=== PATIENT | female | born 1995 | race Caucasian/White ===

== ENCOUNTER → 2018-04-23 16:20 | Outpatient (CLI) | payer SELFPAY | PROVIDERS: Visit Provider Obstetrics & Gynecology | DX: Z12.4 Encounter for screening for malignant neoplasm of cervix (principal) | CPT/HCPCS: 88175; G0145 ==

== ENCOUNTER → 2019-05-13 15:45 | Outpatient (CLI) | payer SELFPAY | PROVIDERS: Referring Provider Obstetrics & Gynecology; Visit Provider Obstetrics & Gynecology | DX: Z12.4 Encounter for screening for malignant neoplasm of cervix (principal) | CPT/HCPCS: 88175; G0145 ==

== ENCOUNTER → 2020-04-21 09:49 | Outpatient (CLI) | payer SELFPAY ==
[2020-04-24 03:07] LABS: Chlamydia By Nucleic Acid AMP Negative (Negative)
[2020-04-24 10:38] LABS: Gonococcus By Nucleic Acid AMP Negative (Negative)
== END ==
PROVIDERS: Visit Provider Obstetrics & Gynecology
DX: Z12.4 Encounter for screening for malignant neoplasm of cervix (principal); Z11.3 Encounter for screening for infections with a predominantly sexual mode of transmission
CPT/HCPCS: 36415; 87491; 87591; 88175; G0145

== ENCOUNTER → 2020-11-02 13:23 | Outpatient (CLI) | payer SELFPAY | PROVIDERS: Visit Provider Obstetrics & Gynecology | DX: Z36.85 Encounter for antenatal screening for Streptococcus B (principal) | CPT/HCPCS: 87081 ==

== ENCOUNTER → 2020-12-06 16:18 | Outpatient (CLI) | payer SELFPAY | PROVIDERS: Visit Provider Obstetrics & Gynecology | DX: Z36.85 Encounter for antenatal screening for Streptococcus B (principal) | CPT/HCPCS: 87081 ==

== ENCOUNTER 2020-12-07 06:14 | Inpatient (IN) | payer SELFPAY ==
[2020-12-07] VITALS (64 sets, daily range): BP systolic 100–144; BP diastolic 55–95; PULSE 59–93; RESP 18; TEMP 36.4–37.6; O2SAT 97–100; BMI 32.1
[2020-12-07] MEDS: Lactated Ringers 1,000 ML 50 ML IV (06:30)
[2020-12-07 06:46] LABS: Absolute Neutrophil Count 8.8 X10^3/uL (2.0-7.7); Basophil# 0.02 X10^3/uL; Basophil% 0.2 % (0-1); Eosinophil# 0.04 X10^3/uL; Eosinophils% 0.4 % (0-5); Hematocrit 38.2 % (37-47); Hemoglobin 12.4 g/dL (12.0-15.0); Mean Corp Hgb Conc 32.5 g/dL (32-36); Mean Corpuscular Hgb 29.6 pg (27.0-32.0); Mean Corpuscular Volume 91.2 fL (81-99); Mean Platelet Vol. 12.7 fl (6.2-12.0); Monocyte# 0.48 X10^3/uL; Monocyte% 4.4 % (0-10); NRBC Flagged by Analyzer 0 % (0-5); Neutrophil # 8.81 X10^3/uL (2.7-7.7); Neutrophil % 81.4 % (47-70); POSITIVE MORPHOLOGY YES; Platelet Count 151 K/mm3 (150-450); RBC Distribution Width CV 13.5 % (11.6-14.6); RBC Distribution Width SD 45.1 fl (35.1-43.9); Red Blood Count 4.19 M/mm3 (4.2-5.4); White Blood Count 10.8 K/mm3 (4.4-11.0)
[2020-12-07 06:48] LABS: Differential Indicated SCAN CRITERIA MET
[2020-12-07] MEDS: Lactated Ringers 500 ML 999 ML IV (07:00)
--- NOTE | 2020-12-07 07:30 | PCM.HPOB.BLA ---
History and Physical Date of Admission: 12/07/20 Complaint: Contractions History present illness: The 25-year-old G1, P0 at 41 weeks and 1 days SACHA: 11/30/2019 1 x 9-week ultrasound arrives with contractions. Denies headache, vision changes, nausea vomiting, chest pain, shortness of breath. Patient states good movement complicated by Rh- Obstetric history: G1: Current Past medical history: None Medications: vitamins Past surgical history: [place] teeth extraction Allergies: No known drug allergies Social history: Denies history of smoking, alcohol use, drug use Family history: Denies history DVT or PE Review of systems: Besides above pertinent positives a full review of systems was performed found to be negative Physical exam: Vital Signs Temp Pulse BP Pulse Ox 12/07/20 07:31 93 99 12/07/20 07:26 73 98 12/07/20 07:21 67 98 12/07/20 07:19 98.4 F 12/07/20 07:18 91 129/95 H 12/07/20 07:16 71 97 12/07/20 07:11 80 98 12/07/20 07:06 88 99 12/07/20 06:03 98.0 F 68 137/84 H 12/07/20 06:02 67 97 General: Normal-appearing no acute distress HEENT: Normocephalic atraumatic no cervical of adenopathy Cardiac/respiratory: Nonlabored breathing, no use of accessory muscles Abdomen: Soft, nontender, gravid Extremities: No peripheral edema normal peripheral pulses Psych: Normal affect normal demeanor nonpressured speech Mom's Microbiology 12/07/20 06:40 Mucosa - Nose SARS-CoV-2 Antigen (Rapid) - Final Mom's Labs & Results 12/07/20 12/07/20 06:30 06:30 WBC 10.8 RBC 4.19 L Hgb 12.4 Hct 38.2 MCV 91.2 MCH 29.6 MCHC 32.5 RDW Std Deviation 45.1 H RDW Coeff of Cristina 13.5 Plt Count 151 MPV 12.7 H Immature Gran % (Auto) 0.600 Neut % (Auto) 81.4 H Lymph % (Auto) 13.0 L Ogle % (Auto) 4.4 Eos % (Auto) 0.4 Baso % (Auto) 0.2 Absolute Neuts (auto) 8.8 H Absolute Lymphs (auto) 1.40 Nucleated RBC % 0 Blood Type O NEGATIVE Antibody Screen NEGATIVE Labs Blood Type: O RH: POSITIVE RPR/VDRL/Syphilis Nonreactive Rubella status Immune HbSAg Negative Date Done: 04/27/20 Chlamydia Negative Gonorrhea Negative HIV/AIDS Non-Reactive Group B Strep: Negative Assessment and plan: 25-year-old 41 weeks and 1 day in labor Admit labor and delivery CEFM GBS negative 12/03/2020: 5 weeks since GBS culture, will start PCN Rh-: For RhoGam Routine orders Anesthesia to see
[2020-12-07] MEDS: fentaNYL-bupivacaine (epidural) 100 ML BAG EPIDURAL ×3 (07:55→17:04)
[2020-12-07] MEDS: Lactated Ringers 1,000 ML 200 ML IV ×2 (11:46→17:03)
--- NOTE | 2020-12-07 12:25 | PCM.PN.BLA ---
Progress Note AROM particulate meconium. /0. Cat I. continue current expectant management. STROKE Vital Signs/Narrative: Vital Signs Temp Pulse BP Pulse Ox 12/07/20 12:03 98.4 F 66 117/69 99 12/07/20 11:04 70 100 12/07/20 10:57 99.0 F 59 L 115/64 100 12/07/20 10:03 97.5 F L 99 12/07/20 10:02 62 100/55 L 12/07/20 08:47 97.9 F 12/07/20 08:36 68 100 12/07/20 08:33 71 126/75 H 12/07/20 08:31 62 98 12/07/20 08:29 59 L 133/77 H 12/07/20 08:26 63 99
[2020-12-07] MEDS: Oxytocin 30 units/NS 500 ml 30 UNITS/500 ML IV.SOLN 334 UNITS IV (17:35)
--- NOTE | 2020-12-07 17:57 | PCM.OPRPT ---
Vaginal Delivery Maternal Presentation: Active Labor Amniotic Membrane Rupture Type: Artificial Amniotic Fluid Description: Moderate meconium Final SACHA: 11/29/20 Final SACHA Source: US <20 weeks Gestational age: 41 Weeks and 1 Days Date of Procedure: 12/07/20 Pre-Operative Diagnosis: Salter intrauterine Post-Operative Diagnosis: Salter intrauterine Surgery/ Procedure Performed: Spontaneous Vaginal Delivery Type of Anesthesia: Epidural Description of Procedure: Spontaneous vaginal delivery viable male. Nuchal cord x1, loose. Baby to mom. Cord clamped and cut. Spontaneous delivery of placenta. Second degree laceration, repaired in usual fashion. Hemostatic. EBL 350cc. A gender: Male (1 minute): 9 (5 minute): 9
--- NOTE | 2020-12-07 17:59 | DCINST_ITS ---
Discharge Diet: No Restrictions Discharge Activity: Return to Normal Activity, May Drive, May not drive while taking narcotic pain medications., May Shower May resume sexual activity in: 6-8 weeks Call your doctor if you observe: Fever of 101 or Higher, Coldness, Increased Pain, Inability to have a bowel movement, Using more than one pad per hour, Shortness of breath, Dizziness, Fainting spells, Increased palpitations (irregular heartbeat), Calf discomfort, Uncontrolled pain Additional Instructions: If you experience any of the following, contact your healthcare provider. * Bleeding that soaks a pad every hour for 2 hours * Fever 100.4 or higher * Unrelieved incision or abdominal pain * Swelling, redness, discharge or bleeding from your incision or episiotomy site * Your incision begins to separate * Problems urinating (including inability to urinate or burning while urinating). * Visual changes * Severe headache * Flu-like symptoms * Pain or redness in one of both of your breasts * Pain, warmth, tenderness or swelling in your legs, especially the calf area * Frequent nausea and vomiting * Symptoms of depression or anxiety If you experience any of the following, call 911 or go to the nearest Emergency Room. * Chest pain * Problems breathing * Seizure activity * Partial or complete paralysis of a body part, slurred speech, weakness or drooping of the face, or a sudden inability to walk or hold your balance Allergies/Adverse Reactions: Allergies No Known Allergies Allergy (Verified 12/07/20 05:56) Medications to take at Discharge Pnv No.95/Ferrous Fum/Folic AC [ Caplet] 1 each PO DAILY 12/07/20 Please Follow Up With: Norman Ellison MD When: 3 week telehealth visit, 6 week Primary Care Physician: Care Physician,No Primary [Primary Care Provider] - Test Results: Test results from this visit will be discussed in further detail at your follow- up appointment, if applicable.
[2020-12-08] VITALS (13 sets, daily range): BP systolic 108–168; BP diastolic 64–91; PULSE 74–102; RESP 14–20; TEMP 36.4–37
[2020-12-08] MEDS: Acetaminophen 500 MG Tablet 1000 MG PO (01:03)
--- NOTE | 2020-12-08 06:48 | PCM.PN.OB ---
Subjective: No overnight complaints. Pain well controlled. - Physical Exam Vitals/I&O's: Vital Signs Temp Pulse Resp BP Pulse Ox 97.9 F 81 14 122/66 H 99 12/08/20 04:21 12/08/20 04:22 12/08/20 04:21 12/08/20 04:22 12/07/20 20:17 Oxygen Delivery Method Room Air Weight: 192 lb 10.944 oz Body Mass Index (BMI) 32.1 Intake and Output for Last 24 Hours 12/06/20 12/07/20 12/08/20 23:59 23:59 23:59 Intake Total 3652.88 / 3652.88 Output Total 1500 / 1500 1000 / 1000 Balance 2152.88 / 2152.88 -1000 / -1000 General: Alert, Oriented x3, Cooperative, No apparent distress HEENT: Atraumatic, Normocephalic Oral: Moist Mucosa Neck: Supple Extremities: No clubbing, No cyanosis Neurological: Neuro grossly intact Psych/Mental Status: Normal Affect, Appropriate, Alert and oriented to time, place, person, mood and affect Microbiology Past 72 Hours 12/07/20 06:40 Mucosa - Nose SARS-CoV-2 Antigen (Rapid) - Final Laboratory Results 12/07/20 06:30: WBC 10.8, RBC 4.19 L, Hgb 12.4, Hct 38.2, MCV 91.2, MCH 29.6, MCHC 32.5, RDW Std Deviation 45.1 H, RDW Coeff of Cristina 13.5, Plt Count 151, MPV 12.7 H, Immature Gran % (Auto) 0.600, Neut % (Auto) 81.4 H, Lymph % (Auto) 13.0 L, [place] % (Auto) 4.4, Eos % (Auto) 0.4, Baso % (Auto) 0.2, Absolute Neuts (auto) 8.8 H, Absolute Lymphs (auto) 1.40, Nucleated RBC % 0 12/07/20 06:30: Blood Type O NEGATIVE, Antibody Screen NEGATIVE Current Medications Acetaminophen (Acetaminophen 500 Mg Tablet) 1,000 mg PO Q8H PRN PRN PRN Reason: Pain Score 1-3 Last Admin: 12/08/20 01:03 Dose: 1,000 mg Documented by: Bisacodyl (Bisacodyl 10 Mg Suppository) 10 mg RC UD PRN PRN Reason: If no BM Dibucaine (Dibucaine 30 Gm Tube) 1 applic TOPICAL TID PRN PRN; Protocol PRN Reason: Discomfort Hydrocortisone (Hydrocortisone 2.5% Crm) 1 applic TOPICAL TID PRN PRN; Protocol PRN Reason: Discomfort Ibuprofen (Ibuprofen 600 Mg Tablet) 600 mg PO Q6H PRN PRN PRN Reason: Pain Score 1-3 Ondansetron HCl (Ondansetron 4 Mg/2 Ml Vial) 4 mg IV Q4H PRN PRN PRN Reason: Nausea Senna/Docusate Sodium (Senna/Docusate Sodium 1 Tablet) 1 - 2 tablet PO DAILY PRN PRN PRN Reason: Constipation Simethicone (Simethicone 80 Mg Tablet) 80 mg PO PCHS PRN PRN Reason: Indigestion/Stomach pain Sodium Chloride (0.9% Saline Lock 10 Ml Syringe) 5 - 15 ml IV UD PRN PRN Reason: SALINE FLUSH Zolpidem Tartrate (Zolpidem Tartrate 5 Mg Tablet) 5 mg PO QHS PRN PRN PRN Reason: Insomnia Medical Necessity - Tobacco Use Smoking Status: Never smoker Assessment/Plan day 1. Breast-feeding. Pain well controlled. Likely home today but okay to go home today if patient desires
[2020-12-08] MEDS: Ibuprofen 600 MG Tablet PO ×2 (09:10→15:17)
--- NOTE | 2020-12-08 20:20 | NURSING ---
Dr. Tam notified of patient's most recent blood pressures and that patient would like to be discharged as is being transferred to [facility] for failed CCHD. Plan is to give Rhogam and then discharge patient.
== END 2020-12-08 21:30 | disposition home or self-care (01) | DRG 807 ==
LOC: WPOUT 06:16 → WP 06:16
PROVIDERS: Admitting Provider Student in an Organized Health Care Education/Training Program; Referring Provider Student in an Organized Health Care Education/Training Program; Visit Provider Student in an Organized Health Care Education/Training Program
DX: O48.0 Post-term pregnancy (principal); Z37.0 Single live birth; O69.81X0 Labor and delivery complicated by cord around neck, without compression, not applicable or unspecified; O70.1 Second degree perineal laceration during delivery; Z3A.41 41 weeks gestation of pregnancy; O77.0 Labor and delivery complicated by meconium in amniotic fluid
CPT/HCPCS: 59050; 85025; 85461; 86850; 86900; 86901; 87426; 90384; 99218; J7120; G0378; J2790

== ENCOUNTER → 2022-01-26 | Outpatient (CLI) | payer SELFPAY ==
[2022-02-01 18:22] LABS: HPV Reflexed? NOT INDICATED
== END | disposition home or self-care (01) ==
PROVIDERS: Visit Provider Obstetrics & Gynecology
DX: Z12.4 Encounter for screening for malignant neoplasm of cervix (principal)
CPT/HCPCS: 88175; G0145

== ENCOUNTER → 2023-09-13 | Outpatient (CLI) | payer SELFPAY ==
--- OUTSIDE RECORDS SUMMARY | 2023-09-13 12:38 | XMS RPT_ITS | CCD ---
Author Name Unknown Address [address] [place] [address] Organization [facility] Care Team Providers Care Economic Developer Name Role Phone CASTRO LANDRY Admitting Unavailable CASTRO LANDRY Primary Care Unavailable CASTRO LANDRY Attending Unavailable CHANTALE LIU Consulting Unavailable PROVIDER, UNKNOWN Consulting Unavailable PROVIDER, UNKNOWN Consulting Unavailable PROVIDER, UNKNOWN Consulting Unavailable ANGEL STRANGE Attending Unavailable CHANTALE LIU Consulting Unavailable ANGEL STRANGE Admitting Unavailable ANGEL STRANGE Primary Care Unavailable PROVIDER, UNKNOWN Consulting Unavailable PROVIDER, UNKNOWN Consulting Unavailable PROVIDER, UNKNOWN Consulting Unavailable Results Test Name Value Interpretation Reference Range Facil ity Encounters Encounter Date Encounter Type Care Provider Facility Start: 09-14-2020 End: 09-14-2020 Patient encounter procedure CASTRO LANDRY [facility] Start: 04-27-2020 End: 04-27-2020 Patient encounter procedure ANGEL STRANGE [facility] Procedures Date Procedure Procedure Detail Performing Clinician Start: 04-27-2020 Urinalysis CASTRO [facility] Summary Purpose Family History No Family History Records FoundNo Family History Records Found Advance Directives No Advanced Directives Records FoundNo Advanced Directives Records Found Additional Source Comments INFORMATION SOURCE (unrecogn ized section and content) DATE CREATED AUTHOR AUTHOR'S ORGANIZ ATION 09/15/2020 [facility] FOR RECORDS PERTAINING TO PATIENTS WHO ARE OR HAVE BEEN ENROLLED IN A CHEMICAL DEPENDENCY/SUBSTANCEABUSE PROGRAM, SOME INFORMATION MAY BE OMITTED. This clinical summary was aggregated from multiple sources. Caution should be exercised in using it in the provision of clinical care. This summary normalizes information from multiple sources, and as a consequence, information in this document may materially change the coding, format and clinical context of patient data. In addition, data may be omitted in some cases. CLINICAL DECISIONS SHOULD BE BASED ON THE PRIMARY CLINICAL RECORDS. [email or web address] provides no warranty or guarantee of the accuracy or completeness of information in this document.
[2023-09-13 13:14] LABS: Absolute Lymphocyte Count 1.73 X10^3/uL (0.83-4.51); Basophil# 0.04 X10^3/uL; Basophil% 0.4 % (0-1); Eosinophil# 0.05 X10^3/uL; Eosinophils% 0.5 % (0-5); Hematocrit 39.7 % (37-47); Hemoglobin 12.9 g/dL (12.0-15.0); Lymphocyte # 1.73 X10^3/ul (0.83-4.51); Lymphocyte % 18.7 % (19-41); Mean Corp Hgb Conc 32.5 g/dL (32-36); Mean Corpuscular Hgb 28.5 pg (27.0-32.0); Mean Corpuscular Volume 87.6 fL (81-99); Mean Platelet Vol. 11.6 fl (6.2-12.0); Monocyte# 0.41 X10^3/uL; Monocyte% 4.4 % (0-10); NRBC Flagged by Analyzer 0 % (0-5); Neutrophil # 6.99 X10^3/uL (2.7-7.7); Neutrophil % 75.7 % (47-70); Platelet Count 264 K/mm3 (150-450); RBC Distribution Width CV 12.4 % (11.6-14.6); RBC Distribution Width SD 39.8 fl (35.1-43.9); Red Blood Count 4.53 M/mm3 (4.2-5.4); White Blood Count 9.3 K/mm3 (4.4-11.0)
[2023-09-13 14:15] LABS: HIV - WCH Non-Reactive (Nonreactive); Hepatitis B Surface Antigen Non-Reactive (Nonreactive); Hepatitis C Antibody Non-Reactive (Nonreactive); Rubella IgG Reactive (Nonreactive); Syphilis Antibodies Non-reactive
[2023-09-15 05:09] LABS: Chlamydia By Nucleic Acid AMP Negative (Negative); Gonococcus By Nucleic Acid AMP Negative (Negative)
== END | disposition home or self-care (01) ==
PROVIDERS: Referring Provider Advanced Practice Midwife; Visit Provider Advanced Practice Midwife
DX: Z34.90 Encounter for supervision of normal pregnancy, unspecified, unspecified trimester (principal)
CPT/HCPCS: 36415; 85025; 86703; 86762; 86780; 86803; 86850; 86900; 86901; 87086; 87340; 87491; 87591

== ENCOUNTER → 2023-12-03 | Outpatient (CLI) | payer SELFPAY ==
--- NOTE | 2023-12-03 14:34 | US_ITS ---
STUDY: SECOND AND THIRD TRIMESTER OBSTETRICAL ULTRASOUND REASON FOR EXAM: Female, 28 years old supervision of high risk LMP: July 19, 2023. TECHNIQUE: Transabdominal and Transvaginal TECHNICAL QUALITY: Adequate. PRIOR ULTRASOUND: None. FINDINGS: There is a single intrauterine fetus. The fetus is in a breech presentation. There is demonstrated cardiac activity with a heart rate of 137 bpm. There is a normal amniotic fluid volume. The largest amniotic fluid pocket measures 4.5 cm x 3.2 cm. The amniotic fluid index (PAMELA) is within normal limits. The placenta is anterior in location and is not low lying. There are Grade 1 placental changes. The cervix measures 4.7 cm in length. The adnexal regions are not visualized. BIOMETRY: BPD: 4.7 cm: 20 weeks, 1 days HC: 17.55 cm: 20 weeks, 0 days AC: 14.63 cm: 20 weeks, 0 days FL: 3.26 cm: 20 weeks, 1 days CI: 81% FL/BPD: 70% FL/HC: FL/AC: 22% HC/AC: 1.2 age by current US: 19 weeks, 6 days. SACHA by current US: April 22, 2024. Estimated weight: 331 grams, +/- 50 grams, 73 %. Age by LMP: 19 weeks, 4 days. SACHA by LMP: April 24, 2024. ANATOMY: Gender: Indeterminant Cranium: Normal lateral ventricles. Normal choroid plexus. Normal cerebellum. Normal cisterna magna. Normal face, nose and lips. Chest: Normal 4-chamber heart. Abdomen/Pelvis: Normal diaphragm. Normal stomach. Normal abdominal wall. Normal cord insertion. Normal 3 vessel cord. Normal kidneys. Normal bladder. Spine: Normal cervical spine. Normal thoracic spine. Normal lumbar spine. Normal sacrum. Extremities: Normal bilateral upper extremities. Normal bilateral lower extremities. IMPRESSION: Single live intrauterine gestation with a mean gestational age of 19 weeks and 6 days. Electronically Signed: Neno Hall MD at 8:36 EDT , STUDY: FIRST TRIMESTER OBSTETRICAL ULTRASOUND REASON FOR EXAM: Female, 28 years old. Cervical length. LMP: July 19, 2023 TECHNIQUE: Transvaginal TECHNICAL QUALITY: Adequate. PRIOR ULTRASOUND: None. FINDINGS: The cervical length measures 4.7 cm. US/OB Anatomy w/ Transvaginal IMPRESSION: Cervical length measures 4.7 cm. Electronically Signed: Neno Hall MD at 8:37 EDT ,
== END | disposition home or self-care (01) ==
LOC: US 14:34
PROVIDERS: Referring Provider Registered Nurse; Visit Provider Registered Nurse
DX: O09.90 Supervision of high risk pregnancy, unspecified, unspecified trimester (principal); Z3A.00 Weeks of gestation of pregnancy not specified
CPT/HCPCS: 76805; 76817

== ENCOUNTER → 2024-02-04 | Outpatient (CLI) | payer SELFPAY ==
[2024-02-04 10:49] LABS: Absolute Lymphocyte Count 2.09 X10^3/uL (0.83-4.51); Absolute Neutrophil Count 6.4 X10^3/uL (2.0-7.7); Basophil# 0.05 X10^3/uL; Basophil% 0.6 % (0-1); Eosinophil# 0.07 X10^3/uL; Eosinophils% 0.8 % (0-5); Hematocrit 37.7 % (37-47); Hemoglobin 12.2 g/dL (12.0-15.0); Lymphocyte # 2.09 X10^3/ul (0.83-4.51); Lymphocyte % 23.1 % (19-41); Mean Corp Hgb Conc 32.4 g/dL (32-36); Mean Corpuscular Hgb 29.3 pg (27.0-32.0); Mean Corpuscular Volume 90.6 fL (81-99); Mean Platelet Vol. 11.4 fl (6.2-12.0); Monocyte# 0.31 X10^3/uL; Monocyte% 3.4 % (0-10); NRBC Flagged by Analyzer 0 % (0-5); Neutrophil # 6.37 X10^3/uL (2.7-7.7); Neutrophil % 70.3 % (47-70); Platelet Count 199 K/mm3 (150-450); RBC Distribution Width CV 13.2 % (11.6-14.6); RBC Distribution Width SD 43.4 fl (35.1-43.9); Red Blood Count 4.16 M/mm3 (4.2-5.4); White Blood Count 9.1 K/mm3 (4.4-11.0)
[2024-02-04 10:57] LABS: Glucose Challenge Gest 1H 50g 152 mg/dL (70-140)
[2024-02-04 11:32] LABS: HIV - WCH Non-Reactive (Nonreactive); Syphilis Antibodies Non-reactive
== END | disposition home or self-care (01) ==
LOC: PAVLAB 09:54
PROVIDERS: Referring Provider Advanced Practice Midwife; Visit Provider Advanced Practice Midwife
DX: O26.899 Other specified pregnancy related conditions, unspecified trimester (principal); Z13.1 Encounter for screening for diabetes mellitus; Z67.91 Unspecified blood type, Rh negative; Z3A.00 Weeks of gestation of pregnancy not specified
CPT/HCPCS: 36415; 82950; 85025; 86703; 86780; 86850; 86900; 86901

== ENCOUNTER → 2024-02-11 | Outpatient (CLI) | payer SELFPAY ==
[2024-02-11 07:40] LABS: Bedside Glucose 88 mg/dL (74-106)
[2024-02-11 09:07] LABS: Glucose GTT-Gestational 1 Hr 182 mg/dL (<190)
[2024-02-11 09:19] LABS: Glucose GTT-Gestation. Fasting 84 mg/dL (<105)
[2024-02-11 10:03] LABS: Glucose GTT-Gestational 2 Hr 176 mg/dL (<165)
[2024-02-11 10:58] LABS: Glucose GTT-Gestational 3 Hr 154 L (<145)
== END | disposition home or self-care (01) ==
LOC: LAB 06:54
PROVIDERS: PCP Nurse Practitioner Family; Referring Provider Advanced Practice Midwife; Visit Provider Advanced Practice Midwife
DX: Z13.1 Encounter for screening for diabetes mellitus (principal)
CPT/HCPCS: 36415; 82951; 82952; 82962

== ENCOUNTER → 2024-03-31 | Outpatient (CLI) | payer SELFPAY ==
--- NOTE | 2024-03-31 08:48 | US_ITS ---
PROCEDURE: SECOND AND THIRD TRIMESTER OBSTETRICAL ULTRASOUND REASON FOR EXAM: Female, 28 years old. Gestational diabetes, evaluate growth LMP: 07/19/2023 TECHNIQUE: Transabdominal PRIOR ULTRASOUND: 12/03/2023 FINDINGS: There is a single intrauterine fetus. The fetus is in a vertex presentation. There is demonstrated cardiac activity with a heart rate of 140 bpm. There is a normal amniotic fluid volume. The largest amniotic fluid pocket measures 5.2 cm. The amniotic fluid index (PAMELA) is 14.7 cm. The placenta is anterior in location and is not low lying. There are Grade 1 placental changes. The cervix is not visualized. 2 BIOMETRY: BPD: 9.2 cm: 37 weeks, 4 days HC: 33.1: 37 weeks, 5 days AC: 34.1: 38 weeks, 0 days FL: 7.2: 36 weeks, 6 days CI: 81.82 FL/BPD: 77.7 FL/HC: 21.7 FL/AC: 21.1 HC/AC: 0.97 age by current US: 37 weeks, 3 days. SACHA by current US: 04/18/2024. Estimated weight: 3307 grams, +/- 496 grams, 83 %. ANATOMY: anatomy is not included on this examination. US/OB Limited With Biometrics IMPRESSION: Single live intrauterine fetus with an estimated gestational age of 37 weeks and 3 days. The SACHA is 04/18/2024. Electronically Signed: Jake Nolan MD at 12:13 EDT ,
== END | disposition home or self-care (01) ==
PROVIDERS: PCP Nurse Practitioner Family; Referring Provider Advanced Practice Midwife; Visit Provider Advanced Practice Midwife
DX: O24.419 Gestational diabetes mellitus in pregnancy, unspecified control (principal); Z3A.36 36 weeks gestation of pregnancy
CPT/HCPCS: 76816; 87081

== ENCOUNTER 2024-04-29 14:03 | Inpatient (IN) | payer SELFPAY ==
[2024-04-29] VITALS (28 sets, daily range): BP systolic 108–154; BP diastolic 59–86; PULSE 60–85; RESP 14–16; TEMP 36.9–37.6; O2SAT 98–100; BMI 32.5
[2024-04-29] MEDS: Lactated Ringers 1,000 ML 999 ML IV (14:30)
[2024-04-29 14:47] LABS: Absolute Lymphocyte Count 2.17 X10^3/uL (0.83-4.51); Basophil# 0.04 X10^3/uL; Basophil% 0.3 % (0-1); Eosinophil# 0.02 X10^3/uL; Eosinophils% 0.2 % (0-5); Hematocrit 41.6 % (37-47); Hemoglobin 13.9 g/dL (12.0-15.0); Lymphocyte # 2.17 X10^3/ul (0.83-4.51); Mean Corp Hgb Conc 33.4 g/dL (32-36); Mean Corpuscular Volume 86.8 fL (81-99); Mean Platelet Vol. 12.4 fl (6.2-12.0); Monocyte% 3.9 % (0-10); NRBC Flagged by Analyzer 0 % (0-5); Neutrophil # 9.97 X10^3/uL (2.7-7.7); Neutrophil % 78.1 % (47-70); Platelet Count 193 K/mm3 (150-450); RBC Distribution Width CV 13.8 % (11.6-14.6); Red Blood Count 4.79 M/mm3 (4.2-5.4); White Blood Count 12.8 K/mm3 (4.4-11.0)
[2024-04-29 15:12] LABS: Bedside Glucose 93 mg/dL (74-106)
--- NOTE | 2024-04-29 15:46 | HP.PCM.OB_ITS ---
HPI - General General Date of Admission: 04/29/24 Date of Service: 04/29/24 HPI Narrative BIANCA CALLAHAN, is a 28 F 40.5 weeks who presents to unit in active labor. 6 cm upon admission. Maternal Data Information SACHA Calculator Estimated Delivery Date Method Current WG Current Estimate 04/24/24 LMP (Certain) 40w 5d Final SACHA: 04/24/24 Final SACHA Source: US >20 weeks Gestational age: 40.5 weeks [facility] Medical History (Updated 04/29/24 @ 15:48 by Kika Garcia CNM) Gestational diabetes Abnormal glucose affecting Home Medications ?Medication ?Instructions ?Recorded ?Last Taken ?Type vitamins no.163-iron tab PO 09/07/23 04/29/24 History bis-gly 20 mg-folate no.10 1 mg tablet (PNV Tabs 20-1) blood sugar diagnostic (Blood #120 ea 02/11/24 Unknown Rx Glucose Test strips) blood-glucose meter #1 ea 02/11/24 Unknown Rx lancets #200 ea 02/11/24 Unknown Rx Allergy/AdvReac Type Severity Reaction Status Date / Time No Known Allergies Allergy Verified 04/29/24 14:26 Family History Sister Family history of recurrent miscarriage 3-4 miscarriages Son Congenital heart defect Still's heart murmur Unknown Congenital heart defect Niece had 2 holes in heart at Surgical History [place] teeth extracted Social History adopted: No household members: spouse and children number of children: 1 current occupational status: employed current occupation: [employer] current occupational exposures/hazards: No pets and animals: No history of recent travel: Yes ([place]) out of state: Yes out of country: No sexually active: Yes Smoking Status: Never smoker alcohol intake: current alcohol intake frequency: holidays/special occasions only details: NOT WHILE substance use type: does not use well-balanced diet: rarely or never caffeine: Yes Type: coffee Number of servings: 1 eating out: 1-3 times/week during the past year weight has: remained stable what type of physical activity do you participate in: walking frequency: 3-4 times per week duration: 15-30 minutes/day luisa/faith: Shinto seatbelt use: sometimes do you feel safe at home: Yes additional social history: FACUNDO History 2 Elective abortions Hx Para 1 Spontaneous abortions Hx # Term Pregnancies Ectopic pregnancies Hx # Pregnancies Multiple births # of living children 1 Past Pregnancies Del. Date Name GA/Weeks Outcome Route Bth Weight Infant Gen Labor Lgth Anesthesia Del Locatn Provider FOB 12/07/20 Kedar 41 live - full term 7#15oz Male 16 hr epid ural H Mirna Loredo Visit Details Expected Delivery Route/Plan Labor Preferences- CB/BF classes: [] labor support person: [] labor intervention preferences: [] pain management options preferred: [] cut cord/dad catch: [] : [] PP control planned: [] discussed possible routes of delivery and associated risks: [] special requests: [] Plans Covid status: [] Flu vaccine: [] Tdap vaccine: declined Rhogam: 02/03 LARC form signed: done Problem list reviewed and updated with the most current plan of care details and appropriate orders placed. Relevant counseling for the gestational age provided. Continue routine care and follow up unless otherwise noted in visit notes/problem list details OB Flowsheet Initial Weight: 158 lb Date -?-?-?-?-?-?-?--?-?-?-?-?- EGA Weight BP Urine Prot -?-?-?-?-?-?-?-?-?-?-?-?- Glucose FHR FuHt Pres Dilation -?-?-?-?-?-?-?-?-?-?-?-?- Effaced St Visit Note 09/13/23 -?-?-?-?-?-?-?-?-?-?-?-?- 8w 0d 158 lb 6 oz (+6 oz) 106/73 -?-?-?-?-?-?-?-?-?-?-?-?- 168 -?-?-?-?-?-?-?-?-?-?-?-?- KW-CRL cons with dates. declines NIPT today plans most visits in [facility] 10/18/23 -?-?-?-?-?-?-?-?-?-?-?-?- 13w 0d 165 lb (+7 lb) 102/69 Negative -?-?-?-?-?-?-?-?-?-?-?-?- Negative 154 -?-?-?-?-?-?-?-?-?-?-?-?- LC- no vb/crampi ng. declines afp. anatomy ordered 11/12/23 -?-?-?-?-?-?-?-?-?-?-?-?- 16w 4d 167 lb 8 oz (+9 lb 8 oz) 103/68 Negative -?-?-?-?-?-?-?-?-?-?-?-?- Negative 140 -?-?-?-?-?-?-?-?-?-?-?-?- KW- no vb/crampi ng. anatomy scan on 12/02. planning next visit in [place] with anatomy scan. First child has A+ blood type. Will need Rhogam at 28 weeks. Discussed 28 week labs and need for Rhogam. 12/03/23 -?-?-?-?-?-?-?-?-?-?-?-?- 19w 4d 169 lb 6 oz (+11 lb 6 oz) 114/73 -?-?-?-?-?-?-?-?-?-?-?-?- 137 -?-?-?-?-?-?-?-?-?-?-?-?- JV- no lof, vagi nal bleeding, or cramping. She had her anatomy scan today but results are pending. looks like an anterior placenta, normal cervix. will call with any abnormal results. 01/07/24 -?-?-?-?-?-?-?-?-?-?-?-?- w 4d 177 lb (+19 lb) 105/69 -?-?-?-?-?-?-?-?-?-?-?-?- 145 45 -?-?-?-?-?-?-?-?-?-?-?-?- kw- no vb/lof/ct x. good fm. discussed 28 week labs 02/04/24 -?-?-?-?-?-?-?-?-?-?-?-?- 28w 4d 183 lb (+25 lb) 109/72 Negative -?-?-?-?-?-?-?-?-?-?-?-?- Negative 135 29 -?-?-?-?-?-?-?-?-?-?-?-?- KW-no vb/lof/ctx . +fm. labs pending. Rhogam and LARC today. 02/27/24 -?-?-?-?-?-?-?-?-?-?-?-?- 31w 6d 184 lb (+26 lb) 97/67 Negative -?-?-?-?-?-?-?-?-?-?-?-?- Negative 140 32 -?-?-?-?-?-?-?-?-?-?-?-?- KW- no vb/lof/ct x. good fm. blood sugars reviewed and WNL 03/19/24 -?-?-?-?-?-?-?-?-?-?-?-?- 34w 6d 186 lb 2 oz (+28 lb 2 oz) 107/69 Negative -?-?-?-?-?-?-?-?-?-?-?-?- Negative 140 35 -?-?-?-?-?-?-?-?-?-?-?-?- KW- no vb/lof/ct x. good fm. Blood sugars reviewed and WNL. 03/31/24 -?-?-?-?-?-?-?-?-?-?-?-?- 36w 4d 185 lb (+27 lb) 113/71 -?-?-?-?-?-?-?-?-?-?-?-?- 142 36 -?-?-?-?-?-?-?-?-?-?-?-?- MH-No Vb, LOF. G ood FM. Rare BH. Growth US today. Glucose nl 04/07/24 -?-?-?-?-?-?-?-?-?-?-?-?- 37w 4d 188 lb (+30 lb) 108/75 Negative -?-?-?-?-?-?-?-?-?-?-?-?- Negative 138 38 -?-?-?-?-?-?-?-?-?-?-?-?- KW- no vb/lof/ct x. good fm. GBS neg. BS normal. declines VE today 04/16/24 -?-?-?-?-?-?-?-?-?-?-?-?- 38w 6d 189 lb (+31 lb) 107/45 Negative -?-?-?-?-?-?-?-?-?-?-?-?- Negative 150 40 2.5 -?-?-?-?-?-?-?-?-?-?-?-?- 70 -2 KW- no vb/ lof/ctx. good fm. requesting membrane sweep next week. 04/23/24 -?-?-?-?-?-?-?-?-?-?-?-?- 39w 6d 190 lb (+32 lb) 107/77 Negative -?-?-?-?-?-?-?-?-?-?-?-?- Negative 125 40 Cephalic 3 -?-?-?-?-?-?-?-?-?-?-?-?- 70 -2 KW- no vb/ lof/reg ctx. good fm. 04/28/24 -?-?-?-?-?-?-?-?-?-?-?-?- 40w 4d 190 lb (+32 lb) 114/78 1+ -?-?-?-?-?-?-?-?-?-?-?-?- Negative 135 41 Cephalic 4 -?-?-?-?-?-?-?-?-?-?-?-?- 70 -2 KW- no vb/ lof/reg ctx. good fm. KW- no vb/lof/reg ctx. good fm. membrane sweep today and IOL set up NST FHR Rate Baby A Baseline: 135 Variability:: Moderate Accelerations:: 15 x 15 Decelerations:: None NST Reactive:: Yes FHR Category:: Category I Uterine Activity:: 2 minutes ROS Constitutional Constitutional: Denies change in weight, fatigue, fever(s), headache(s), poor appetite or weakness Eyes Eyes: Denies blurry vision, change in vision, floaters, seeing flashes or spots in vision ENT HEENT: Denies dizziness, headache(s), loss taste/smell or sore throat Cardiovascular Cardiovascular: Denies chest pain, dizziness, dyspnea, irregular heart rhythm, lightheadedness, palpitations or rapid heart rate Respiratory/Chest Respiratory/Chest: Denies change in mental status, chest tightness, cough, dyspnea or breast pain Gastrointestinal Gastrointestinal: Denies anorexia, chewing difficulty, constipation, diarrhea or weight changes Genitourinary Genitourinary: Denies difficulty urinating, dysuria, flank pain, genital pain, urinary frequency or urinary urgency Musculoskeletal Musculoskeletal: Denies back pain, difficulty walking, extremity pain, joint pain, muscle cramps or muscle weakness Integumentary Integumentary: Denies lesions or unusual bruising Neurologic Neurologic: Denies abnormal movements, abnormal speech, dizziness, numbness, seizure-like activity, syncope or weakness Psychiatric Psychiatric: Denies behavioral changes, change in appetite, confusion, depression, homicidal ideation, suicidal ideation or suicidal thoughts Endocrine Endocrinology: Denies excessive sweating, polydipsia or polyuria Hematologic/Lymphatic Hematologic/Lymphatic: Denies anemia Allergic/Immunologic Allergic/Immunologic: Denies itchy eyes, lip swelling, throat swelling, tongue swelling or wheezing Vital Signs Vital Signs Vital Signs: 04/29/24 14:48 04/29/24 14:48 04/29/24 15:08 Pulse Rate 66 69 Blood Pressure 154/86 H BP Systolic 154 BP Diastolic 86 Pulse Ox 04/29/24 15:08 04/29/24 15:11 04/29/24 15:11 Pulse Rate 83 Blood Pressure 140/78 H BP Systolic 140 BP Diastolic 78 Pulse Ox 99 04/29/24 15:13 04/29/24 15:13 04/29/24 15:15 Pulse Rate 74 Blood Pressure 134/73 H BP Systolic 134 BP Diastolic 73 Pulse Ox 99 04/29/24 15:15 04/29/24 15:18 04/29/24 15:18 Pulse Rate 73 68 Blood Pressure BP Systolic BP Diastolic Pulse Ox 99 04/29/24 15:20 04/29/24 15:20 04/29/24 15:23 Pulse Rate 78 74 Blood Pressure 135/76 H BP Systolic 135 BP Diastolic 76 Pulse Ox 04/29/24 15:23 04/29/24 15:26 04/29/24 15:26 Pulse Rate 60 Blood Pressure 115/77 BP Systolic 115 BP Diastolic 77 Pulse Ox 100 04/29/24 15:28 04/29/24 15:28 04/29/24 15:35 Pulse Rate 60 Blood Pressure 123/65 H BP Systolic 123 BP Diastolic 65 Pulse Ox 100 04/29/24 15:35 04/29/24 15:35 04/29/24 15:35 Pulse Rate 64 68 Blood Pressure BP Systolic BP Diastolic Pulse Ox 100 04/29/24 15:40 04/29/24 15:40 04/29/24 15:45 Pulse Rate 70 Blood Pressure 119/67 128/80 H BP Systolic 119 128 BP Diastolic 67 80 Pulse Ox 04/29/24 15:45 Pulse Rate 77 Blood Pressure BP Systolic BP Diastolic Pulse Ox Weight Weight: 190 lb Body Mass Index (BMI) 32.5 Physical Exam Const alert, oriented x3 and no apparent distress General Appearance: cooperative Orientation / Consciousness: awake HEENT normocephalic Neck full ROM Lymph Lymphatic: no lymphadenopathy noted Chest inspection of chest normal Resp normal respiratory effort and normal air movement Effort and Inspection: able to speak in complete sentences and symmetric chest movement GI soft to palpation and non-tender Inspection: gravid Palpation: soft; Negative for tender external exam normal Back/Spine normal to inspection Extremity normal to inspection and full ROM Skin no rashes or lesions noted Psych mental status grossly normal Appearance: grossly normal Speech: normal speech Labs Labs Labs: Blood Type O NEGATIVE Antibody Screen NEGATIVE Hct 41.6 % (37-47) Hgb 13.9 g/dL (12.0-15.0) Obstetrics Ultrasound Syphilis Total Ab Non-reactive Rubella IgG Antibody Reactive (Nonreactive) Hep Bs Antigen Non-Reactive (Nonreactive) Hepatitis C Antibody Non-Reactive (Nonreactive) Chlamydia DNA ([place]) Negative (Negative) N.gonorrhoeae DNA ([place]) Negative (Negative) HIV 1&2 Antibody Non-Reactive (Nonreactive) Glucose 1 Hr 50 gm 152 mg/dL (70-140) H Gest Glucose Tolerance MG/DL Rhogam given: Yes Assessment & Plan (1) Active labor: PLAN: Patient presents IAL, plan expectant management for , pitocin/AROM PRN if needed. Pain management: plans epidural. GBS neg. Management of any complications: none I have reviewed the [facility] and made any clinically relevant updates. Dr Silveira aware of assessment and plan and agrees with above (2) Gestational diabetes mellitus (GDM) affecting , antepartum: COMMENT: testing 4 times daily, 36 week US (83%) , now testing BID (3) Supervision of high-risk : QUALIFIERS: Trimester: third trimester Qualified Code(s): O09.93 - Supervision of high risk , unspecified, third trimester COMMENT: PRR, , SACHA 04/24/24 PC Kedar, Facundo (4) : QUALIFIERS: Weeks of gestation: 40 weeks Qualified Code(s): Z3A.40 - 40 weeks gestation of COMMENT: GBS neg,discussed genetic & carrier testing, declines. normal anatomy scan. (5) Rh negative state in antepartum period: COMMENT: Rhogam @ 28 weeks & PRN bleeding Charges/Coding Multi Select Codes Urinary/Genital Urinary/Genital CPT Codes: No Charge
--- NOTE | 2024-04-29 15:49 | PCM.PN.BLA ---
Progress Note comfortable with epidural current tracing: FHT: 135 Moderate variability reactive no decelerations category I tracing [place]: 2-3 minute Contractions Membranes: AROM clear SVE:9.5/90/0 A/P: Continue with position changes Epidural per anesthesia GBS neg Anticipate Dr Wright aware of above assessment and agrees with plan of care Assessment & Plan Assessment/Plan (1) Active labor: (2) Gestational diabetes mellitus (GDM) affecting , antepartum: (3) Supervision of high-risk : QUALIFIERS: Trimester: third trimester Qualified Code(s): O09.93 - Supervision of high risk , unspecified, third trimester (4) : QUALIFIERS: Weeks of gestation: 40 weeks Qualified Code(s): Z3A.40 - 40 weeks gestation of (5) Rh negative state in antepartum period: Multi Select Codes Urinary/Genital Urinary/Genital CPT Codes: No Charge
[2024-04-29] MEDS: Lactated Ringers 1,000 ML 200 ML IV (15:56)
[2024-04-29 16:03] LABS: Syphilis Antibodies Non-reactive
[2024-04-29] MEDS: fentaNYL-bupivacaine (epidural) 100 ML BAG EPIDURAL (16:38)
--- NOTE | 2024-04-29 16:58 | EX.PCM.OBRPT ---
Assessment & Plan (1) Vaginal delivery: COMMENT: KW 40.5 girl IAL (2) Active labor: (3) Gestational diabetes mellitus (GDM) affecting , antepartum: COMMENT: testing 4 times daily, 36 week US (83%) , now testing BID (4) Supervision of high-risk : QUALIFIERS: Trimester: third trimester Qualified Code(s): O09.93 - Supervision of high risk , unspecified, third trimester COMMENT: PRR, , SACHA 04/24/24 PC Kedar, Facundo (5) : QUALIFIERS: Weeks of gestation: 40 weeks Qualified Code(s): Z3A.40 - 40 weeks gestation of COMMENT: GBS neg,discussed genetic & carrier testing, declines. normal anatomy scan. (6) Rh negative state in antepartum period: COMMENT: Rhogam @ 28 weeks & PRN bleeding Maternal Data Information SACHA Calculator Estimated Delivery Date Method Current WG Current Estimate 04/24/24 LMP (Certain) 40w 5d Final SACHA: 04/24/24 Final SACHA Source: US >20 weeks Gestational age: 40.5 Vaginal Delivery Maternal Presentation Maternal Presentation: Active Labor and - (Presented to unit in active labor) Maternal Presentation: Progressed well to 10cm dilated and made steady progress with effective maternal pushing. Delivered the head in OP presentation. The head was delivered atraumatically and no nuchal cord was identified. The anterior and posterior shoulders delivered without complication followed by the rest of the and the infant was placed on the maternal abdomen. Delayed cord clamping was employed for approximately 3 minutes. Cord was clamped and cut and gentle traction was applied to the cord and the placenta delivered spontaneously. Immediately following, it was noted to be intact with a 3 vessel cord. The perineum and vagina were inspected and noted to have a small second degree laceration which was repaired with 3-0 Vicryl in the usual fashion. EBL was 200cc. Patient and tolerated delivery well. Apgars 9/9. Dr Vargas notified of vaginal delivery and orders reviewed. Physician agrees with current plan of care. 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: Kika Garcia Type of Anesthesia: Epidural Estimated Blood Loss: 200 Time of Delivery: 16:30 Findings Presentation: LOP Amniotic Membrane Rupture Type: Artificial Amniotic Fluid Description: Clear Placental Delivery Description: Spontaneous Placenta Disposition: [facility] Cord Vessel Description: 3 Vessels Cord Entanglement: None A Gender: Female (1 minute): 9 (5 minute): 9 Delayed Cord Clamping: Yes Post Vaginal Delivery Medications Given After Delivery: IV Pitocin Episiotomy Description: None Laceration: 2nd degree Complication Complications: None Multi Select Codes Urinary/Genital Urinary/Genital CPT Codes: 84526 Vaginal Delivery [facility]
--- NOTE | 2024-04-29 17:02 | DCINST_ITS ---
Discharge Instructions Diet Discharge Diet: No restrictions Activity Discharge Activity: Return to Normal Activity May resume sexual activity in: 6-8 weeks Dressing / Incision Call your doctor if you observe: Fever of 101 or Higher, Coldness, Increased Pain, Numbness or Tingling, Change in Color, Inability to urinate, Inability to have a bowel movement, Using more than 1 pad per hour, Shortness of breath, Dizziness, Fainting spells, Swelling in the ankles, Chest pain, Increased palpitations (irregular heartbeat), Calf discomfort and Uncontrolled pain Follow Up Care Please Follow Up With: Kika Garcia CNM When: Please call the office to schedule your follow up appointment in 6 weeks. If you had high blood pressure please call to schedule an appointment in 2 weeks. Test Results: Test results from this visit will be discussed in further detail at your follow- up appointment, if applicable. Discharge Plan Admission Admit Date/Time: 04/29/24 14:03 Attending Provider: Kika Garcia Primary Care Provider: aBrbara Wang NP Discharge Orders/Prescriptions Prescriptions: No Action PNV Tabs 20-1 20 mg iron- 1 mg tablet PO (DME) Blood Glucose Test Strip See Rx Instructions .MEDSUPPLY Qty: 120 5RF Rx Instructions: As directed-fasting & 2 hr post meals (DME) blood-glucose meter Misc See Rx Instructions .MEDSUPPLY Qty: 1 0RF Rx Instructions: As directed- Test fasting and 2 hours after meals (DME) lancets Misc See Rx Instructions .MEDSUPPLY Qty: 200 5RF Rx Instructions: As directed-fasting & 2 hr post meals Referrals / Follow Up: Barbara Wang NP, [employer] [Primary Care Provider] -
[2024-04-29] MEDS: Oxytocin 15 Units/NS 250ml 15 UNITS/250 ML IV.SOLN 83 UNITS IV (17:15)
[2024-04-29 18:11] LABS: Bedside Glucose 114 mg/dL (74-106)
[2024-04-29] MEDS: Rho(D) Immune Globulin 300 MCG (1500 Unit) Syringe IV (21:37)
[2024-04-29] MEDS: 0.9% Saline Lock 10 ML Syringe IV (21:38)
[2024-04-30 00:36] VITALS: BP 119/77; PULSE 73; RESP 20; TEMP 36.8; O2SAT 96
[2024-04-30 04:14] VITALS: BP 111/72; PULSE 65; RESP 14; TEMP 36.8; O2SAT 97
[2024-04-30] MEDS: Naproxen 500 MG Tablet PO (04:25)
[2024-04-30 07:21] LABS: Bedside Glucose 81 mg/dL (74-106)
--- NOTE | 2024-04-30 07:49 | PN.OBGYN_ITS ---
Subjective Subjective Patient doing well without complaints. Tolerating PO. Ambulating and voiding without difficulty. Feeding well. Denies chest pain, shortness of breath, calf pain/swelling, fevers, chills, lightheadedness. Objective Data Objective Data Vital Signs: Vital Signs Temp Pulse Resp BP Pulse Ox O2 Del Method 98.2 F 65 14 111/72 97 Room Air 04/30/24 04:14 04/30/24 04:14 04/30/24 04:14 04/30/24 04:14 04/30/24 04:14 04/30/24 04:14 Oxygen Delivery Method Room Air Weight: 190 lb Body Mass Index (BMI) 32.5 Intake & Output: Intake and Output for Last 24 Hours 04/28/24 04/29/24 04/30/24 23:59 23:59 23:59 Intake Total 1363.33 / 1363.33 Output Total 800 / 800 400 / 400 Balance 563.33 / 563.33 -400 / -400 Lab / Micro Data 04/29/24 14:30 Labs: Laboratory Results - last 24 hr 04/29/24 14:30: WBC 12.8 H, RBC 4.79, Hgb 13.9, Hct 41.6, MCV 86.8, MCH 29.0, MCHC 33.4, RDW Std Deviation 43.0, RDW Coeff of Cristina 13.8, Plt Count 193, MPV 12.4 H, Immature Gran % (Auto) 0.500, Neut % (Auto) 78.1 H, Lymph % (Auto) 17.0 L, [place] % (Auto) 3.9, Eos % (Auto) 0.2, Baso % (Auto) 0.3, Absolute Neuts (auto) 10.0 H, Absolute Lymphs (auto) 2.17, Nucleated RBC % 0, Syphilis Total Ab Non- reactive, Blood Type O NEGATIVE, Antibody Screen NEGATIVE 04/29/24 14:53: POC Glucose 93 04/29/24 17:46: POC Glucose 114 H 04/29/24 19:00: Screen NEGATIVE, Baby's Blood Type O POSITIVE, Baby's MARNI NEGATIVE 04/30/24 07:02: POC Glucose 81 Physical Exam Const alert and oriented x3 HEENT normocephalic Eyes PERRL Neck full ROM Resp normal respiratory effort GI soft to palpation GI Narrative: FF below U Assessment & Plan (1) Vaginal delivery: COMMENT: KW 40.5 girl IAL (2) Gestational diabetes mellitus (GDM) affecting , antepartum: COMMENT: stable pp (3) Rh negative state in antepartum period: COMMENT: Rhogam @ 28 weeks & PRN bleeding PLAN: Plan s/p PPD # 1 1. routine post delivery care 2. breast feeding- support given 3. rh negative 4. rubella immune 5. home today
[2024-04-30 08:55] VITALS: BP 104/70; PULSE 71; RESP 18; TEMP 36.5; O2SAT 96
[2024-04-30] MEDS: Senna/Docusate Sodium 1 Tablet PO (09:48)
[2024-04-30 12:29] VITALS: BP 108/65; PULSE 70; RESP 18; TEMP 36.5; O2SAT 97
[2024-04-30 16:37] VITALS: BP 112/74; PULSE 76; RESP 16; TEMP 36.4; O2SAT 97
== END 2024-04-30 19:00 | disposition home or self-care (01) | DRG 807 ==
PROVIDERS: Admitting Provider Advanced Practice Midwife; PCP Nurse Practitioner Family; Referring Provider Advanced Practice Midwife; Visit Provider Advanced Practice Midwife
DX: O24.420 Gestational diabetes mellitus in childbirth, diet controlled (principal); Z37.0 Single live birth; O26.893 Other specified pregnancy related conditions, third trimester; Z67.41 Type O blood, Rh negative; O70.1 Second degree perineal laceration during delivery; Z3A.40 40 weeks gestation of pregnancy
CPT/HCPCS: 59025; 59050; 82962; 85025; 85461; 86780; 86850; 86900; 86901; 90384; 99221; J7120; A4216; G0378; J2790; J2791